=== PATIENT | male | born 1965 | race African-American/Black ===

== ENCOUNTER 2019-12-13 14:53 | Emergency (ER) | payer MEDICARE, MEDICAID ==
[~2019-12-13] VITALS: Ht 177.8 cm; Wt 82.0 kg
[2019-12-13 20:35] VITALS: BP 142/81
== END 2019-12-13 20:37 ==
LOC: ER 14:53
DX: M25.552 Pain in left hip (principal); M25.551 Pain in right hip; M19.90 Unspecified osteoarthritis, unspecified site; I10 Essential (primary) hypertension
CPT/HCPCS: 93005; 99285

== ENCOUNTER 2023-01-24 15:33 | Inpatient (IN) | payer MEDICARE, MEDICAID ==
[~2023-01-24] VITALS: Ht 182.9 cm; Wt 88.0 kg
[2023-01-24] MEDS ORDERED: MIDAZOLAM HCL 2 MG/2 ML VIAL IM ONE (15:45)
[2023-01-24] MEDS ORDERED: LEVETIRACETAM 1000MG PREMIX 100 ML IV ONE (15:45)
[2023-01-24 17:49] LABS: BASOPHILS % 0.2 % (0.0-2.0); DIFFERENTIAL COMMENT 0; EOSINOPHILS % 0.4 % (0.0-5.0); HEMATOCRIT. 53.7 % (42.0-52.0); HEMOGLOBIN. 16.4 g/dL (14.0-18.0); LYMPHOCYTES % 11.9 % (20.0-50.0); MEAN CORPUSCULAR HEMOGLOBIN 29.6 pg (28.0-32.0); MEAN CORPUSCULAR HGB CONC 30.6 g/dL (31.0-37.0); MEAN CORPUSCULAR VOLUME 96.8 fL (80.0-94.0); MEAN PLATELET VOLUME 10.4 fl (7.4-10.4); MONOCYTES % 7.9 % (2.0-8.0); NEUTROPHILS % 79.6 % (40.0-76.0); PLATELET 129 x1000/uL (130-400); RED BLOOD CELL COUNT 5.54 mill/uL (4.7-6.1); RED CELL DISTRIBUTION WIDTH 15.3 % (11.6-14.6); WHITE BLOOD COUNT 9.7 x1000/uL (4.5-11.0)
[2023-01-24 17:59] LABS: CHLORIDE 116 mEq/L (98-107); INDEX HEMOLYSI 1 (1-3); INDEX ICTERIC 1 (1-4); INDEX LIPEMIC 1 (1-3); SODIUM 149 mEq/L (136-145)
[2023-01-24] MEDS ORDERED: ACETAMINOPHEN 325MG TABLET PO ONE (18:00)
[2023-01-24] MEDS ORDERED: KETOROLAC 30MG/ML VIAL IV ONE (18:00)
[2023-01-24 18:10] LABS: ALANINE AMINOTRANSFERASE 40 IU/L (13-61); ALBUMIN 3.3 g/dL (3.4-5.0); ASPARTATE AMINOTRANSFERASE 26 IU/L (15-37); BILIRUBIN TOTAL 0.4 mg/dL (0.1-1.0); CALCIUM 9.9 mg/dL (8.5-10.1); CARBON DIOXIDE 24 mEq/L (21-32); CREATININE 2.1 mg/dL (0.6-1.3); ETHANOL BLOOD < 10 mg/dL (<10); PROTEIN TOTAL 8.4 g/dL (6.0-8.3); UREA NITROGEN BLOOD 45 mg/dL (7-21)
[2023-01-24 18:46] LABS: GLUCOSE 1049 mg/dL (70-105)
[2023-01-24] MEDS ORDERED: INSULIN REGULAR (HUMULIN R) 300UNITS/3ML VIAL SUBCUT ONE (19:00)
[2023-01-24] MEDS ORDERED: SODIUM CHLORIDE 0.9% 1,000 ML IV ONE ×2 (19:00→20:30)
[2023-01-24 19:23] LABS: BG BASE EXCESS -3.6 mmol/L (-2.0-2.0); BG CARBOXYHEMOGLOBIN 0.9 % (0.5-1.5); BG DEOXYHEMOGLOBIN 5.9 % (0.0-5.0); BG HCO3 ACT 22.5 mmol/L (22.0-26.0); BG METHEMOGLOBIN 0.4 % (0.0-1.5); BG OXYHEMOGLOBIN 92.8 % (94.0-97.0); BG PCO2 44.6 mmHg (35.0-45.0); BG PH 7.321 (7.350-7.450); BG PO2 74.8 mmHg (75.0-100.0); BG SAMPLE SITE RIGHT RADIAL; BG TOTAL HEMOGLOBIN 15.6 g/dL (12.0-18.0); BG VENT MODE ROOM AIR
[2023-01-24 19:49] LABS: BETA HYDROXYBUTYRATE 3.9 mMol/L (0.0-0.3); NT PRO B-TYPE NATRIURETIC PEP 22 pg/mL (5-125); TROPONIN I HIGH SENSITIVITY 24 ng/L (<78)
[2023-01-24 20:00] VITALS: BP 143/94; PULSE 109; RESP 18; TEMP 97.1
[2023-01-24] MEDS ORDERED: DOCUSATE SODIUM 100MG CAPSULE PO PRN (20:45)
[2023-01-24] MEDS ORDERED: CLONIDINE 0.1MG TABLET PO PRN (20:45)
[2023-01-24] MEDS ORDERED: ACETAMINOPHEN 325MG TABLET PO PRN ×2 (20:45)
[2023-01-24] MEDS ORDERED: AMLO10TA80 PO (20:45)
[2023-01-24] MEDS ORDERED: ONDANSETRON HCL 4MG/2ML INJ IV PRN (20:45)
[2023-01-24] MEDS ORDERED: IPRATROPIUM/ALBUTEROL 0.5-3(2.5)MG/3ML NEB HHN PRN (20:45)
[2023-01-24] MEDS ORDERED: SODIUM CHLORIDE 0.45% 1,000 ML IV ONE ×2 (21:00→21:45)
[2023-01-24] MEDS ORDERED: INSULIN LISPRO 100 UNITS/ML SUBCUT NR (21:15)
[2023-01-24] MEDS ORDERED: INSULIN REGULAR (HUMULIN R) 300UNITS/3ML VIAL IV NR (21:30)
[2023-01-24 23:07] LABS: POTASSIUM 3.7 mEq/L (3.5-5.1)
[2023-01-24 23:23] LABS: CALCIUM 8.5 mg/dL (8.5-10.1); CREATININE 1.9 mg/dL (0.6-1.3); T4 FREE 0.87 ng/dL (0.76-1.46); THYROID STIMULATING HORMONE 1.2 uIU/mL (0.36-3.74)
[2023-01-24 23:24] LABS: LACTIC ACID 2.2 mmol/L (0.4-2.0)
[2023-01-24 23:43] LABS: INDEX HEMOLYSI 3 (1-3)
[2023-01-24] MEDS: SODIUM CHL 0.45% + KCL 20MEQ/L 1,000 ML IV SCH (23:45)
[2023-01-24] MEDS ORDERED: SODIUM PHOS,M-BASIC-D-BASIC 15 MM in SODIUM CHLORIDE 0.9% 245 ML IV PRN (23:45)
[2023-01-24] MEDS ORDERED: POTASSIUM CHLORIDE INJ 40 MEQ in SODIUM CHLORIDE 0.9% 230 ML IV PRN (23:45)
[2023-01-24] MEDS: BLOOD SUGAR DIAGNOSTIC STRIP TEST SCH (23:45)
[2023-01-24] MEDS ORDERED: INSULIN REGULAR (HUMULIN R) 300UNITS/3ML VIAL SUBCUT NR (23:45)
[2023-01-24] MEDS ORDERED: INSULIN REGULAR 100U/100ML PMX 100 ML IV SCH (23:45)
[2023-01-24] MEDS ORDERED: DEXTROSE 50% WATER 50ML SYRINGE IV PRN (23:45)
[2023-01-24] MEDS ORDERED: KCL 20MEQ/100ML PREMIX 100 ML IV PRN (23:45)
[2023-01-24] MEDS ORDERED: MAGNESIUM 2 G PREMIX 100 ML IV PRN (23:45)
[2023-01-24] MEDS ORDERED: DEXT 5%/0.9% NACL 1,000 ML IV SCH (23:45)
[2023-01-24 23:49] LABS: CREATINE KINASE 790 IU/L (39-308)
[2023-01-24] MEDS: GABAPENTIN 100MG CAPSULE PO SCH (23:54)
[2023-01-25] VITALS: BP 148/85; PULSE 89; RESP 18; TEMP 97
[2023-01-25 00:47] LABS: POTASSIUM 3.8 mEq/L (3.5-5.1)
[2023-01-25 00:50] LABS: CALCIUM 9.4 mg/dL (8.5-10.1)
[2023-01-25 00:54] LABS: PHOSPHORUS 4.2 mg/dL (2.5-4.9)
[2023-01-25 01:16] LABS: CLARITY URINE CLOUDY (CLEAR); COLOR URINE YELLOW (YELLOW); GLUCOSE URINE 3+ (NEGATIVE); KETONES URINE 1+ (NEGATIVE); LEUKOCYTE ESTERASE URINE NEGATIVE (NEGATIVE); NITRITE URINE NEGATIVE (NEGATIVE); OCCULT BLOOD URINE 3+ (NEGATIVE); PROTEIN URINE 2+ (NEGATIVE); SPECIFIC GRAVITY URINE 1.036 (1.005-1.030); UROBILINOGEN URINE 0.2 E.U./dL (0.2-1.0)
[2023-01-25 01:19] LABS: SQUAMOUS EPITHELIAL CELL URINE NONE SEEN /lpf (RARE/1+); YEAST URINE NONE SEEN
[2023-01-25 01:21] LABS: SODIUM URINE RANDOM 19 mEq/L
[2023-01-25 01:25] LABS: *AMPHETAMINES SCREEN URINE NEGATIVE (NEGATIVE); *BARBITURATES SCREEN URINE NEGATIVE (NEGATIVE); *BENZODIAZEPINES SCREEN URINE NEGATIVE (NEGATIVE); *COCAINE SCREEN URINE NEGATIVE (NEGATIVE); CANNABINOID URINE SCREEN NEGATIVE (NEGATIVE); ECSTASY MDMA SCREEN URINE NEGATIVE (NEGATIVE); OPIATES URINE SCREEN NEGATIVE (NEGATIVE); PHENCYCLIDINE URINE SCREEN NEGATIVE (NEGATIVE)
[2023-01-25] MEDS: BLOOD SUGAR DIAGNOSTIC STRIP TEST SCH ×10 (01:45→20:46)
[2023-01-25] MEDS ORDERED: INSULIN LISPRO 100 UNITS/ML SUBCUT NR (02:00)
[2023-01-25 02:08] LABS: OSMOLALITY URINE 683 mOsm/kg (500-850)
[2023-01-25 02:29] LABS: RBC URINE 0-2 /hpf (0-2)
[2023-01-25 02:30] LABS: BACTERIA URINE 3+
[2023-01-25 04:00] VITALS: BP 129/80; PULSE 80; RESP 18; TEMP 98.8
[2023-01-25] MEDS ORDERED: INSULIN REGULAR (HUMULIN R) 300UNITS/3ML VIAL IV NR (04:00)
[2023-01-25] MEDS: GABAPENTIN 100MG CAPSULE PO SCH ×3 (07:00→21:13)
[2023-01-25] MEDS: SODIUM CHL 0.45% + KCL 20MEQ/L 1,000 ML IV SCH (07:00)
[2023-01-25 08:00] VITALS: BP 151/100; PULSE 89; RESP 20; TEMP 97.5
[2023-01-25] MEDS: AMLODIPINE 10MG TABLET PO SCH (08:47)
[2023-01-25] MEDS: ENOXAPARIN 30MG/0.3ML SYR SUBCUT SCH ×4 (08:47→21:00)
[2023-01-25] MEDS ORDERED: DEXTROSE 5% WATER 1,000 ML IV SCH (10:15)
[2023-01-25] MEDS ORDERED: INSULIN GLARGINE 100 UNITS/ML SUBCUT SCH (10:30)
[2023-01-25] MEDS ORDERED: DEXTROSE 50% WATER 50ML SYRINGE IV PRN (10:30)
[2023-01-25] MEDS: INSULIN LISPRO 100 UNITS/ML SUBCUT SCH ×3 (11:49→21:12)
[2023-01-25 12:00] VITALS: BP 149/96; PULSE 100; RESP 20; TEMP 97.9
[2023-01-25 16:00] VITALS: BP 154/88; PULSE 97; RESP 20; TEMP 98.2
[2023-01-25 18:14] LABS: CHLORIDE 123 mEq/L (98-107); INDEX HEMOLYSI 1 (1-3); INDEX ICTERIC 1 (1-4); INDEX LIPEMIC 1 (1-3); POTASSIUM 3.4 mEq/L (3.5-5.1)
[2023-01-25 18:28] LABS: ALANINE AMINOTRANSFERASE 37 IU/L (13-61); ALBUMIN 2.9 g/dL (3.4-5.0); ASPARTATE AMINOTRANSFERASE 29 IU/L (15-37); BILIRUBIN TOTAL 0.2 mg/dL (0.1-1.0); CALCIUM 9.3 mg/dL (8.5-10.1); CARBON DIOXIDE 32 mEq/L (21-32); CREATININE 1.9 mg/dL (0.6-1.3); GLUCOSE 356 mg/dL (70-105); PHOSPHORUS 3.6 mg/dL (2.5-4.9); PROTEIN TOTAL 7.6 g/dL (6.0-8.3); TROPONIN I HIGH SENSITIVITY 28 ng/L (<78); UREA NITROGEN BLOOD 36 mg/dL (7-21)
[2023-01-25 18:40] LABS: SODIUM 158 mEq/L (136-145)
[2023-01-25] MEDS ORDERED: POTASSIUM CHLORIDE 20MEQ TABLET SR PO NR (19:15)
[2023-01-25 20:00] VITALS: BP 151/87; PULSE 109; RESP 17; TEMP 97.8
[2023-01-25] MEDS: DEXTROSE 5% WATER 1,000 ML IV SCH (20:25)
[2023-01-25 20:41] LABS: BASOPHILS % 0.2 % (0.0-2.0); EOSINOPHILS % 1.7 % (0.0-5.0); HEMATOCRIT. 45.9 % (42.0-52.0); HEMOGLOBIN. 14.5 g/dL (14.0-18.0); LYMPHOCYTES % 18.5 % (20.0-50.0); MEAN CORPUSCULAR HEMOGLOBIN 29.4 pg (28.0-32.0); MEAN CORPUSCULAR HGB CONC 31.6 g/dL (31.0-37.0); MEAN CORPUSCULAR VOLUME 92.9 fL (80.0-94.0); MEAN PLATELET VOLUME 10.3 fl (7.4-10.4); MONOCYTES % 7.3 % (2.0-8.0); NEUTROPHILS % 72.3 % (40.0-76.0); PLATELET 102 x1000/uL (130-400); RED BLOOD CELL COUNT 4.94 mill/uL (4.7-6.1); RED CELL DISTRIBUTION WIDTH 14.5 % (11.6-14.6); WHITE BLOOD COUNT 8.6 x1000/uL (4.5-11.0)
[2023-01-25] MEDS ORDERED: INSULIN REGULAR (HUMULIN R) 300UNITS/3ML VIAL SUBCUT NR ×2 (21:45)
[2023-01-26] VITALS: BP 128/88; PULSE 106; RESP 16; TEMP 97.6
[2023-01-26 04:00] VITALS: BP_SYST 133; BP_SYST 138; BP_DIAS 91; PULSE 102; RESP 18; TEMP 97.6
[2023-01-26] MEDS: DEXTROSE 5% WATER 1,000 ML IV SCH ×2 (05:49→15:14)
[2023-01-26] MEDS: GABAPENTIN 100MG CAPSULE PO SCH ×3 (05:54→22:00)
[2023-01-26] MEDS: BLOOD SUGAR DIAGNOSTIC STRIP TEST SCH ×4 (06:57→21:00)
[2023-01-26] MEDS: INSULIN LISPRO 100 UNITS/ML SUBCUT SCH ×7 (07:40→22:03)
[2023-01-26 08:00] VITALS: BP 144/94; PULSE 92; RESP 18; TEMP 98.1
[2023-01-26] MEDS: AMLODIPINE 10MG TABLET PO SCH (08:45)
[2023-01-26] MEDS: ENOXAPARIN 40MG/0.4ML SYR SUBCUT SCH (08:48)
[2023-01-26] MEDS ORDERED: INSULIN GLARGINE 100 UNITS/ML SUBCUT SCH (10:00)
[2023-01-26] MEDS: INSULIN GLARGINE 100 UNITS/ML SUBCUT SCH (10:42)
[2023-01-26 12:00] VITALS: BP 145/91; PULSE 101; RESP 18; TEMP 97.6
[2023-01-26 16:00] VITALS: BP 131/88; PULSE 104; RESP 18; TEMP 98.1
[2023-01-26 17:41] LABS: POTASSIUM 3.2 mEq/L (3.5-5.1)
[2023-01-26 17:46] LABS: CREATININE 1.9 mg/dL (0.6-1.3); PHOSPHORUS 4.3 mg/dL (2.5-4.9)
[2023-01-26 20:00] VITALS: BP 119/79; PULSE 94; RESP 18; TEMP 97.2
[2023-01-27] VITALS: BP 135/85; PULSE 90; RESP 18; TEMP 97.2
[2023-01-27] MEDS: DEXTROSE 5% WATER 1,000 ML IV SCH (02:03)
[2023-01-27 04:00] VITALS: BP 132/87; PULSE 86; RESP 20; TEMP 98.8
[2023-01-27] MEDS: GABAPENTIN 100MG CAPSULE PO SCH (06:00)
[2023-01-27] MEDS: BLOOD SUGAR DIAGNOSTIC STRIP TEST SCH ×2 (06:53→12:43)
[2023-01-27] MEDS: INSULIN LISPRO 100 UNITS/ML SUBCUT SCH ×3 (06:53→13:45)
[2023-01-27 08:00] VITALS: BP 145/94; PULSE 86; RESP 20; TEMP 98
[2023-01-27] MEDS: ENOXAPARIN 40MG/0.4ML SYR SUBCUT SCH (09:00)
[2023-01-27] MEDS: AMLODIPINE 10MG TABLET PO SCH (09:33)
[2023-01-27] MEDS ORDERED: POTASSIUM CHLORIDE 20MEQ TABLET SR PO SCH (09:45)
[2023-01-27] MEDS: INSULIN GLARGINE 100 UNITS/ML SUBCUT SCH (11:51)
[2023-01-27 12:00] VITALS: BP 158/83; PULSE 86; RESP 20; TEMP 97.9
[2023-01-27 13:47] VITALS: BP 158/83; PULSE 87; TEMP 97.9; O2SAT 99
[2023-01-27] MEDS ORDERED: INSULIN LISPRO 100 UNITS/ML SUBCUT SCH (17:40)
== END 2023-01-27 14:37 | DRG 638 ==
LOC: ER 16:05 → 8WST 18:40 → EDBEDREQ 18:44 → EDBEDREQTM 18:44
PROVIDERS: ADMIT Hospitalist; ATTEND Hospitalist
DX: E11.00 Type 2 diabetes mellitus with hyperosmolarity without nonketotic hyperglycemic-hyperosmolar coma (NKHHC) (principal); G82.20 Paraplegia, unspecified; N17.9 Acute kidney failure, unspecified; E78.1 Pure hyperglyceridemia; E11.22 Type 2 diabetes mellitus with diabetic chronic kidney disease; E11.40 Type 2 diabetes mellitus with diabetic neuropathy, unspecified; N18.9 Chronic kidney disease, unspecified; G40.909 Epilepsy, unspecified, not intractable, without status epilepticus; I12.9 Hypertensive chronic kidney disease with stage 1 through stage 4 chronic kidney disease, or unspecified chronic kidney disease; M19.90 Unspecified osteoarthritis, unspecified site; Z79.4 Long term (current) use of insulin; Z79.899 Other long term (current) drug therapy; Z99.3 Dependence on wheelchair; Z82.49 Family history of ischemic heart disease and other diseases of the circulatory system
CPT/HCPCS: 36415; 36600; 71045; 73090; 73110; 80048; 80051; 80053; 80061; 80305; 80320; 81003; 82010; 82375; 82550; 82805; 82962; 83036; 83605; 83735; 83880; 83930; 83935; 84100; 84300; 84439; 84443; 84484; 85025; 93005; 93971; 99291; J1650; J1815; J1885; J1953; J3480; J7030; J7070; G0480